=== PATIENT | male | born 1955 | race Caucasian/White ===

== ENCOUNTER 2017-01-28 08:32 | Emergency (ER) | payer OTHER ==
[2017-01-28 08:38] VITALS: BP 150/91; PULSE 83; RESP 16; TEMP 98.8; O2SAT 98
[2017-01-28 08:39] VITALS: BMI 23.8
--- NOTE | 2017-01-28 09:50 | ED PDOC ---
HPI: Headache Time Seen by Provider: 01/28/17 09:07 Chief Complaint (Nursing): Headache Chief Complaint (Provider): Headache History Per: Patient History/Exam Limitations: no limitations Onset/Duration Of Symptoms: Days Current Symptoms Are (Timing): Still Present Quality: "Pain" Preceeding Symptoms: None Associated Symptoms: denies: Photophobia, Blurred Vision, Nausea, Vomiting, Extremity Weakness Additional History Per: Patient Additional Complaint(s): The patient is a 61yo male, with past medical history of high cholesterol, presents to the ED for evaluation of left sided face pain radiating to his ear and down his neck for the past couple days. Patient reports he had associated fever, present intermittently and controlled with use of Tylenol. He also reports taking Motrin for pain with relief. Patient states he visited his PCP and was informed to visit the ED for further evaluation. He denies any vision changes, recent dental work, dental pain and offers no additional medical complaints. Past Medical History Reviewed: Historical Data, Nursing Documentation, Vital Signs Vital Signs: Last Vital Signs Temp 98.8 F 01/28/17 08:37 Pulse 83 01/28/17 08:37 Resp 16 01/28/17 08:37 BP 150/91 H 01/28/17 08:37 Pulse Ox 98 01/28/17 08:37 - Medical History PMH: Hypercholesterolemia, Chronic Kidney Disease - Surgical History Surgical History: No Surg Hx - Family History Family History: States: No Known Family Hx - Living Arrangements Living Arrangements: With Family - Social History Current smoker - smoking cessation education provided: No Alcohol: Occasional Drugs: Denies - Home Medications Home Medications: Ambulatory Orders Medication Instructions Recorded Unobtainable 12/02/16 - Allergies Allergies/Adverse Reactions: Allergies Allergy/AdvReac Type Severity Reaction Status Date / Time No Known Allergies Allergy Verified 12/02/16 08:12 Review of Systems ROS Statement: Except As Marked, All Systems Reviewed And Found Negative Constitutional: Positive for: Fever (intermittent episodes, relief with tylenol) ENT: Positive for: Ear Pain (left), Other (left face swelling). Negative for: Ear Discharge Gastrointestinal: Negative for: Nausea, Vomiting Musculoskeletal: Positive for: Neck Pain (left sided) Physical Exam - Reviewed Nursing Documentation Reviewed: Yes Vital Signs Reviewed: Yes - Physical Exam Appears: Positive for: Non-toxic, No Acute Distress Head Exam: Positive for: ATRAUMATIC, NORMAL INSPECTION, NORMOCEPHALIC Skin: Positive for: Warm, Dry Eye Exam: Positive for: EOMI, PERRL ENT: Positive for: Normal ENT Inspection, TM Is/Are (clear bilateraly), Other ( mild erythema, swelling noted near left TMJ). Negative for: Pharyngeal Erythema Neck: Positive for: Painless ROM, Supple, Trachea Midline Cardiovascular/Chest: Positive for: Regular Rate, Rhythm Respiratory: Positive for: Normal Breath Sounds. Negative for: Respiratory Distress Neurologic/Psych: Positive for: Alert, Oriented - Laboratory Results Result Diagrams: 01/28/17 10:58 01/28/17 10:58 - ECG O2 Sat by Pulse Oximetry: 98 (RA) Pulse Ox Interpretation: Normal Medical Decision Making Medical Decision Making: Time: 939 Impression: Left facial pain, rule out abscess Plan: -- CT Facial bones -- Labs Reassess 1330 CT Head IMPRESSION: Unremarkable contrast enhanced CT of the orbits and face. Labs reviewed and all results are within normal limits. Patient informed of findings and is stable for discharge home. Informed to follow up with ENT specialist and to return to ED if symptoms worsen. Scribe Attestation: Documented by Tamie Chiang acting as a scribe for David Banks MD. Provider Attestation: All medical record entries made by the Scribe were at my direction and personally dictated by me. I have reviewed the chart and agree that the record accurately reflects my personal performance of the history, physical exam, medical decision making, and the department course for this patient. I have also personally directed, reviewed, and agree with the discharge instructions and disposition. Disposition - Clinical Impression Clinical Impression: Jaw pain - Disposition Referrals: [facility] [Outside] [facility] [Outside] Alex Harley MD [Staff Provider] - Disposition: Routine/Home Disposition Time: 13:30 Condition: IMPROVED Additional Instructions: follow up with ENT doctor in 1-2 days take motrin for pain return to the ED with any worsening or concerning symptoms Instructions: Temporomandibular Disorder (ED) Forms: [facility] (Mauritian) Print Language: [id number]
[2017-01-28] MEDS ORDERED: Iohexol 300 100 ML IJ ONE (10:10)
[2017-01-28] MEDS ORDERED: Sodium Chloride 0.9% 50 ML IV ONE (10:10)
[2017-01-28 11:10] LABS: BASO % 0.1 % (0.0-2.0); EOS # 0.2 K/uL (0.0-0.7); EOS % 1.9 % (0.0-4.0); HEMATOCRIT 40.3 % (35.0-51.0); LYMPH # 1.4 K/uL (1.0-4.3); LYMPH % 13.5 % (20.0-40.0); MEAN CELL VOLUME 90.5 fl (80.0-94.0); MEAN CORPUSCULAR HGB CONC 34.3 g/dL (33.0-37.0); MEAN PLATELET VOLUME 8.7 fl (7.2-11.7); MONO # 0.8 K/uL (0.0-0.8); MONO % 7.5 % (0.0-10.0); NEUT # 8.2 K/uL (1.8-7.0); RED CELL DISTRIBUTION WIDTH 12.6 % (11.5-14.5); WHITE BLOOD COUNT 10.7 K/uL (4.8-10.8)
[2017-01-28 11:57] LABS: ALB/GLOB RATIO 1.3 (1.0-2.1); ALKALINE PHOSPHATASE 68 U/L (38-126); ALT/SGPT 25 U/L (21-72); AST/SGOT 26 U/L (17-59); BILIRUBIN,TOTAL 0.6 mg/dl (0.2-1.3); BLOOD UREA NITROGEN 12 mg/dl (9-20); CALCIUM 9.2 mg/dL (8.4-10.2); CARBON DIOXIDE 24 mmol/L (22-30); CHLORIDE 106 mmol/L (98-107); GFR AFRICAN-AMERICAN > 60; GLUCOSE,RANDOM 100 mg/dL (75-110); POTASSIUM 4.6 MMOL/L (3.6-5.0); SODIUM 141 mmol/l (132-148); TOTAL PROTEIN 7.2 G/DL (6.3-8.2)
--- NOTE | 2017-01-28 13:30 | CT ---
PROCEDURE: CT ORBITS WITH CONTRAST. [id number] HISTORY: left facial swelling COMPARISON: None available. TECHNIQUE: Following administration of intravenous iodinated contrast, axial CT images of the orbits and facial region were obtained. Coronal and sagittal reformats were generated. Intravenous contrast dose: 95 cc Omnipaque 300 Radiation dose: Total exam DLP = mGy-cm. This CT exam was performed using one or more of the following dose reduction techniques: Automated exposure control, adjustment of the mA and/or kV according to patient size, and/or use of iterative reconstruction technique. FINDINGS: RIGHT ORBIT: RIGHT BONY ORBIT: Normal. RIGHT INTRAORBITAL STRUCTURES: Globe: Normal. Extraocular muscles: Normal. Post septal space: Normal. Optic Nerve: Normal. Lacrimal Apparatus: Normal. RIGHT PRESEPTAL SOFT TISSUES: Normal. LEFT ORBIT: LEFT BONY ORBIT: Normal. LEFT INTRAORBITAL STRUCTURES: Globe: Normal. Extraocular muscles: Normal. Post septal space: Normal. Optic Nerve: Normal. Lacrimal Apparatus: Normal. LEFT PRESEPTAL SOFT TISSUES: Normal. OTHER: None. IMPRESSION: Unremarkable contrast enhanced CT of the orbits and face. .
== END 2017-01-28 14:08 | disposition home or self-care (01) ==
LOC: SUPCPDRO 08:32 → H.ER 08:32
DX: R68.84 Jaw pain (principal)
CPT/HCPCS: 70481; 80053; 85025; 87040; 99285; Q9967

== ENCOUNTER 2017-02-19 08:14 | Emergency (ER) | payer OTHER ==
[2017-02-19 08:15] VITALS: BMI 23.8
[2017-02-19 08:24] VITALS: BP 139/90; PULSE 98; RESP 19; TEMP 98.3; O2SAT 100
--- NOTE | 2017-02-19 09:01 | ED PDOC ---
HPI: Back Time Seen by Provider: 02/19/17 08:24 Chief Complaint (Nursing): Back Pain Chief Complaint (Provider): Neck Pain History Per: Patient History/Exam Limitations: no limitations Onset/Duration Of Symptoms: Days (x4) Current Symptoms Are (Timing): Still Present Additional Complaint(s): Ralph is a 61 y/o male who presents to the ED complaining of left-sided neck pain for 4 days. Denies any injury or trauma. Seen by PMD on 02/17, who prescribed butalbital with tylenol and caffeine, which patient has taken with minimal relief (last dose yesterday 6PM). Also reports taking a muscle relaxer on Wednesday without relief, and 800mg Ibuprofen yesterday afternoon. Patient also complains of a subjective fever on & off for the past 2-3 days, but no temperature was taken at home. Pain worsens with movement and position of head. Denies chest pain, cough, and shortness of breath. PMD: Jack Coreas Past Medical History Reviewed: Historical Data, Nursing Documentation, Vital Signs Vital Signs: Last Vital Signs Temp 98.3 F 02/19/17 08:22 Pulse 98 H 02/19/17 08:22 Resp 19 02/19/17 08:22 BP 139/90 02/19/17 08:22 Pulse Ox 100 02/19/17 08:22 - Medical History PMH: Hypercholesterolemia, Chronic Kidney Disease - Surgical History Surgical History: No Surg Hx - Family History Family History: States: Unknown Family Hx - Social History Current smoker - smoking cessation education provided: No Alcohol: Social Drugs: Denies - Home Medications Home Medications: Ambulatory Orders Medication Instructions Recorded Acetaminophen/Butalbital/Caf 1 tab PO Q8H 02/19/17 [Fioricet] Cyclobenzaprine [Cyclobenzaprine 10 mg PO TID #30 tab 02/19/17 HCl] Gemfibrozil [Lopid] 600 mg PO DAILY 02/19/17 Naproxen [Naprosyn] 500 mg PO BID PRN #20 tablet 02/19/17 - Allergies Allergies/Adverse Reactions: Allergies Allergy/AdvReac Type Severity Reaction Status Date / Time No Known Allergies Allergy Verified 12/02/16 08:12 Review of Systems ROS Statement: Except As Marked, All Systems Reviewed And Found Negative Constitutional: Positive for: Fever Cardiovascular: Negative for: Chest Pain Respiratory: Negative for: Cough, Shortness of Breath Musculoskeletal: Positive for: Neck Pain Physical Exam - Reviewed Nursing Documentation Reviewed: Yes Vital Signs Reviewed: Yes - Physical Exam Appears: Positive for: Non-toxic, No Acute Distress Head Exam: Positive for: ATRAUMATIC, NORMAL INSPECTION, NORMOCEPHALIC Skin: Positive for: Normal Color, Warm, Dry Eye Exam: Positive for: EOMI, Normal appearance, PERRL Neck: Positive for: Normal, Supple, Pain On Movement Of Neck (with tenderness to the left cervical paraspinal muscles) Cardiovascular/Chest: Positive for: Regular Rate, Rhythm. Negative for: Edema, Murmur Respiratory: Positive for: Normal Breath Sounds. Negative for: Accessory Muscle Use, Respiratory Distress Pulses-Radial (L): 2+ Pulses-Radial (R): 2+ Back: Positive for: Normal Inspection. Negative for: L CVA Tenderness, R CVA Tenderness, Vertebral Tenderness Extremity: Positive for: Normal ROM. Negative for: Pedal Edema, Deformity Neurologic/Psych: Positive for: Alert, Oriented - ECG O2 Sat by Pulse Oximetry: 100 (RA) Pulse Ox Interpretation: Normal - Radiology X-Ray: Interpreted by Me, Viewed By Me X-Ray Interpretation: No Acute Disease Medical Decision Making Medical Decision Making: Time: 8:52 Initial Plan: --Toradol 30 mg IV --Valium 5 mg PO --X-Ray Cervical Spine Scribe Attestation: Documented by Ava Sexton, acting as a scribe for Andreea Villatoro MD Provider Scribe Attestation: All medical record entries made by the Scribe were at my direction and personally dictated by me. I have reviewed the chart and agree that the record accurately reflects my personal performance of the history, physical exam, medical decision making, and the department course for this patient. I have also personally directed, reviewed, and agree with the discharge instructions and disposition. 10.40 - x-rays shows no acute pathology. patient is feeling better. Will d/c home with meds. Disposition - Clinical Impression Clinical Impression: Muscle strain - Patient ED Disposition Is Patient to be Admitted: No Doctor Will See Patient In The: Office Counseled Patient/Family Regarding: Diagnosis, Need For Followup, Rx Given - Disposition Disposition: Routine/Home Disposition Time: 10:51 Condition: IMPROVED Prescriptions: Cyclobenzaprine [Cyclobenzaprine HCl] 10 mg PO TID #30 tab Naproxen [Naprosyn] 500 mg PO BID PRN #20 tablet PRN Reason: Pain, Moderate (4-7) Instructions: Muscle Strain (ED) Forms: [facility] (Belgian), [facility] ED School/Work Excuse - POA Present On Arrival: None
--- NOTE | 2017-02-19 11:28 | RAD ---
PROCEDURE: Cervical Spine Radiographs. HISTORY: Pain. COMPARISON: None. FINDINGS: BONES: There is straightening of the cervical spine with loss of normal cervical lordosis. Vertebral alignment is normal. vertebral height is maintained. There is no acute fracture or spondylolisthesis. The craniocervical junction is normal. The atlantoaxial joint is normal. DISC SPACES: There is mild degenerative disc disease at C5-6 with anterior osteophytes and reduced disc height. There is mild right neural foraminal narrowing at C3-4 and mild left neural foraminal narrowing at C3-4 and C5-6. SOFT TISSUES: Normal. No prevertebral soft tissue swelling. OTHER FINDINGS: None. IMPRESSION: Mild degenerative disc disease at C5-6 with mild left neural foraminal narrowing. Additional comments as described above. Straightening of the cervical spine may be positional or related to muscle spasm.
== END 2017-02-19 11:01 | disposition home or self-care (01) ==
LOC: H.ER 08:14
DX: M54.2 Cervicalgia (principal); E78.00 Pure hypercholesterolemia, unspecified; N18.9 Chronic kidney disease, unspecified
CPT/HCPCS: 72050; 96374; 99281; J1885

== ENCOUNTER 2017-09-22 11:43 | Observation (INO) | payer OTHER ==
[2017-09-22 11:44] VITALS: BMI 23.8
[2017-09-22] MEDS ORDERED: Sodium Chloride 0.9% 1,000 ML IV STA (12:26)
[2017-09-22] MEDS ORDERED: Iohexol 240 (50 ml) PO ONE (12:26)
[2017-09-22] MEDS ORDERED: Famotidine 20mg/50ml 20 MG/50 ML BAG IVPB ONE ×2 (12:30→12:42)
[2017-09-22] MEDS ORDERED: Iohexol 240 (50 ml) ONE (12:42)
--- NOTE | 2017-09-22 12:47 | ED PDOC ---
HPI: Chest Pain Time Seen by Provider: 09/22/17 12:07 Chief Complaint (Nursing): Chest Pain Chief Complaint (Provider): Chest pain History Per: Patient History/Exam Limitations: no limitations Onset/Duration Of Symptoms: Days (3) Additional Complaint(s): Pt. with chest pain for 3 days. Getting better. Also with left lower abdominal pain for 4 days. Had dark stool today. No back pain, dyspnea, weakness, headaches, dizziness. No dysuria. No leg pain. Had a test for his heart in the past and had some closing of one of the arteries. Past Medical History Reviewed: Nursing Documentation, Vital Signs Vital Signs: Last Vital Signs Temp 98.1 F 09/22/17 11:54 Pulse 81 09/22/17 11:54 Resp 16 09/22/17 11:54 BP 142/89 09/22/17 11:54 Pulse Ox 98 09/22/17 13:16 - Medical History PMH: CAD, HTN, Hypercholesterolemia - Family History Family History: States: Unknown Family Hx - Social History Alcohol: None Drugs: Denies - Home Medications Home Medications: Ambulatory Orders Medication Instructions Recorded Acetaminophen/Butalbital/Caf 1 tab PO Q8H 02/19/17 [Fioricet] Cyclobenzaprine [Cyclobenzaprine 10 mg PO TID #30 tab 02/19/17 HCl] Gemfibrozil [Lopid] 600 mg PO DAILY 02/19/17 Naproxen [Naprosyn] 500 mg PO BID PRN #20 tablet 02/19/17 - Allergies Allergies/Adverse Reactions: Allergies Allergy/AdvReac Type Severity Reaction Status Date / Time No Known Allergies Allergy Verified 12/02/16 08:12 Review of Systems ROS Statement: Except As Marked, All Systems Reviewed And Found Negative Cardiovascular: Positive for: Chest Pain Gastrointestinal: Positive for: Abdominal Pain, Other (dark stool) Physical Exam - Reviewed Nursing Documentation Reviewed: Yes Vital Signs Reviewed: Yes - Physical Exam Appears: Positive for: Non-toxic, No Acute Distress Head Exam: Positive for: ATRAUMATIC, NORMAL INSPECTION, NORMOCEPHALIC Skin: Positive for: Normal Color, Warm, DRY Eye Exam: Positive for: EOMI, Normal appearance, PERRL ENT: Positive for: Normal ENT Inspection Neck: Positive for: Normal, Painless ROM Cardiovascular/Chest: Positive for: Regular Rate, Rhythm Respiratory: Positive for: CNT, Normal Breath Sounds Gastrointestinal/Abdominal: Positive for: Soft, Tenderness (LLQ). Negative for : Distended, Guarding Back: Positive for: Normal Inspection. Negative for: L CVA Tenderness, R CVA Tenderness Rectal: Positive for: Rectal Tone Is: (intact), Other (brown stool). Negative for: Black Stool, Blood Streaked Stool Extremity: Positive for: Normal ROM. Negative for: Tenderness, Pedal Edema Neurologic/Psych: Positive for: Alert, Oriented - Laboratory Results Result Diagrams: 09/22/17 12:16 09/22/17 12:16 Interpretation Of Abn Labs: no acute - ECG ECG: Positive for: Interpreted By Me, Viewed By Me ECG Rhythm: Positive for: Normal QRS, Normal ST Segment, Sinus Rhythm O2 Sat by Pulse Oximetry: 98 Pulse Ox Interpretation: Normal - CT Scan/US ct Other Rad Studies (CT/US): Read By Radiologist Other Rad Interpretation: no acute - Progress ED Course And Treament: 1555: Stable. AAOx3. Has risk factors for ACS with CAD hx. Will need admit. Spoke with Dr. Dwyer. Will admit tele obs and give further orders when pt. reaches floor. No chest pain currently. Disposition - Clinical Impression Clinical Impression: Chest pain, Abdominal pain - Patient ED Disposition Is Patient to be Admitted: Yes Counseled Patient/Family Regarding: Studies Performed, Diagnosis, Need For Followup - Disposition Disposition Time: 15:56 Condition: FAIR - Pt Status Changed To: Hospital Disposition Of: Observation - POA Present On Arrival: None
[2017-09-22 12:48] LABS: LYMPH % 9.5 % (20.0-40.0); MEAN CELL VOLUME 90.5 fl (80.0-94.0); MEAN CORPUSCULAR HEMOGLOBIN 31.4 pg (27.0-31.0); MEAN CORPUSCULAR HGB CONC 34.7 g/dL (33.0-37.0); MEAN PLATELET VOLUME 8.8 fl (7.2-11.7); MONO # 0.3 K/uL (0.0-0.8); NEUT % 87.5 % (50.0-75.0); PLATELET COUNT 178 K/uL (130-400); RBC 4.79 Mil/uL (4.40-5.90); RED CELL DISTRIBUTION WIDTH 13.4 % (11.5-14.5); WHITE BLOOD COUNT 10.3 K/uL (4.8-10.8)
[2017-09-22 13:00] LABS: PROTHROMBIN TIME 11.7 Seconds (9.8-13.1)
[2017-09-22 13:01] LABS: INR 1.1 (0.9-1.2); PARTIAL THROMBOPLASTIN TIME 28.7 Seconds (25.6-37.1)
[2017-09-22 13:02] LABS: ALB/GLOB RATIO 1.2 (1.0-2.1); ALBUMIN 4.3 g/dL (3.5-5.0); ALT/SGPT 31 U/L (21-72); AST/SGOT 22 U/L (17-59); BLOOD UREA NITROGEN 21 mg/dl (9-20); CALCIUM 9.5 mg/dL (8.4-10.2); GFR AFRICAN-AMERICAN > 60; GFR NON-AFRICAN AMERICAN > 60
[2017-09-22 13:26] LABS: ANISOCYTOSIS SLIGHT; LARGE PLATELETS PRESENT; LYMPHOCYTE 15 % (20-50); MONOCYTE 4 % (0-10); NEUTROPHIL 81 % (42-75); PLATELET ESTIMATE NORMAL (NORMAL); TOTAL CELLS COUNTED 100
[2017-09-22] MEDS ORDERED: Sodium Chloride 0.9% 50 ML IV ONE (14:53)
[2017-09-22] MEDS ORDERED: Iohexol 300 100 ML IJ ONE (14:53)
--- NOTE | 2017-09-22 15:26 | CT ---
PROCEDURE: CT Abdomen and Pelvis with contrast HISTORY: abd pain COMPARISON: None. TECHNIQUE: Following oral and intravenous contrast administration, a CT examination of the abdomen and pelvis performed from the domes of the diaphragms to the symphysis pubis with reformatted datasets provided not only axial but also sagittal and coronal series. Contrast dose: Omnipaque 300, 95 cc Radiation dose: Total exam DLP = 346.49 mGy-cm. This CT exam was performed using one or more of the following dose reduction techniques: Automated exposure control, adjustment of the mA and/or kV according to patient size, and/or use of iterative reconstruction technique. FINDINGS: LOWER THORAX: Trace bibasilar dependent atelectasis is noted. No pleural pericardial effusion. Trace fluid or mucoid material is seen minimally distending the esophagogastric junction. LIVER: Diminished hepatic attenuation is appreciate compatible with hepatic steatosis. No focal mass or biliary tree dilatation is identified throughout the liver. GALLBLADDER AND BILE DUCTS: Unremarkable. PANCREAS: Unremarkable. No gross lesion or ductal dilatation. SPLEEN: Unremarkable. ADRENALS: Unremarkable. No mass. KIDNEYS AND URETERS: There multiple but infrequent tiny lucencies which are poorly characterized at the bilateral renal cortex. A moderately large simple cyst is exophytic off the upper pole medially, measuring 6.4 x 6.7 cm. No obstructive uropathy bilaterally. VASCULATURE: Unremarkable. No aortic aneurysm. BOWEL: Stomach is partially collapsed and not well evaluated. No bowel obstruction is identified. [id number] scattered left colonic diverticular changes are appreciated concentrated at the sigmoid segment without diverticulitis. No prominent mural thickening seen throughout the bowel grossly. APPENDIX: Normal appendix. PERITONEUM: Minimal umbilical hernia containing only fat. Developing left inguinal hernia containing only fat. No free fluid. No free air. LYMPH NODES: Unremarkable. No enlarged lymph nodes. BLADDER: Urinary bladder is distended but thin and smooth walled. REPRODUCTIVE: Borderline prostate gland enlargement. BONES: No acute fracture. OTHER FINDINGS: None. IMPRESSION: 1. No bowel or urinary tract obstruction, ascites, measure edema or free intraperitoneal gas identified. 2. Hepatic steatosis. 3. Left colonic diverticulosis without diverticulitis. 4. Borderline prostate gland enlargement. 5. Moderately large simple cyst left kidney.
--- NOTE | 2017-09-22 16:25 | RAD ---
HISTORY: pain COMPARISON: No prior. FINDINGS: LUNGS: No active pulmonary disease. PLEURA: No significant pleural effusion identified, no pneumothorax apparent. CARDIOVASCULAR: Normal. OSSEOUS STRUCTURES: Bilateral shoulder arthrosis VISUALIZED UPPER ABDOMEN: Normal. OTHER FINDINGS: None. IMPRESSION: No active disease.
[2017-09-22] MEDS ORDERED: Pneumococcal 23-Valent Vaccine IM ONE (21:00)
--- NOTE | 2017-09-23 01:33 | HP ---
HISTORY OF PRESENT ILLNESS: The patient is a 62-year-old male with history of multiple medical problems presented with epigastric burning like chest pain. The patient stated that he had the pain during rest and was not relieved by taking antiacids. The patient also admits that he has some shortness of breath, but no palpitation. REVIEW OF SYSTEMS: Other review of systems positive black stool that noticed by the patient on the day of admission. Other review of systems is negative. ALLERGIES: NO KNOWN ALLERGY. MEDICATIONS: As per MAR. SOCIAL HISTORY: No history of smoking, EtOH, or substance abuse. FAMILY HISTORY: Noncontributory. PAST MEDICAL HISTORY: Type 2 diabetes mellitus, back pain, and hypercholesterolemia. PHYSICAL EXAMINATION: GENERAL: The patient is in bed, not in any cardiopulmonary distress. VITAL SIGNS: Blood pressure 135/83, temperature 98.5, respiratory rate 20, and pulse 73. HEENT: Pupils equal and reactive to light. Normal-appearing mucosa of the conjunctivae, oropharynx, and nasal membrane mucosa. NECK: Supple. No JVD. No carotid bruit. No lymph node. No thyromegaly. CHEST AND LUNGS: Bilateral symmetrical expansion. Good air exchange. No rales. No rhonchi. CARDIOVASCULAR: PMI not localized. S1 and S2. No additional sounds. ABDOMEN: Normoactive bowel sounds. No tenderness. No organomegaly. No masses. EXTREMITIES: No cyanosis. No clubbing. No edema. CENTRAL NERVOUS SYSTEM: Alert, awake, and oriented x3. No neurological deficit could be appreciated. ASSESSMENT: 1. Chest pain, rule out myocardial infarction, symptoms of melena and the patient was on naproxen at home for back pain, rule out upper gastrointestinal bleeding. 2. Type 2 diabetes mellitus. 3. Hypercholesterolemia. PLAN: We will do cardiac enzymes every 8 hours x3. GI consult, Protonix, and hold the current medications. Lo Dwyer MD
--- NOTE | 2017-09-23 09:18 | CARD ---
APPROVED REPORT EKG Measurement Heart [id number] ID [id number] <Conclusion> Normal sinus rhythm Normal ECG
[2017-09-23] MEDS ORDERED: Chlorhexidine Gluconate 1 APPL/PKT TP ONE (09:27)
--- NOTE | 2017-09-23 09:35 | CP.PCM.CON ---
<Charlie Victoria - Last Filed: 09/23/17 11:30> History of Present Illness - History of Present Illness History of Present Illness: PGY5 GI Fellow Consult Note Patient is a 62yo male with PMHx significant for diabetes, dyslipidemia who presented to the ED with chest/abdominal pain. The patient has been suffering with severe low back pain and has been using Naproxen and Baclofen for several days prior to arrival. Prior to that, he admits to Mortrin use at home. He developed intermittent, substernal and epigastric burning pain over the last week. Symptoms improved with Tums and he denies any other medications/remedies used to treat symptoms. Yesterday, he had a formed, dark black stool and given persistence of symptoms, came to the ED for further evaluation. Thusfar, cardiac workup is ongoing and troponin is negative x3. Denies any dizziness, lightheadedness, palpitations, nausea, vomiting, weight loss, hematochezia. 12 system ROS performed and negative except where stated PMHx: See HPI PSHx: Reveiwed, patient denies significant surgical history FHx: Reviewed, patient denies significant family history Social: Denies tobacco, illicit drug use; rare EtOh use Endo: Colonoscopy - December 2016 - sigmoid diverticulosis Past Patient History - Infectious Disease Hx of Infectious Diseases: None - Past Medical History & Family History Past Medical History?: Yes - Past Social History Smoking Status: Never Smoked - CARDIAC Hx Cardiac Disorders: Yes (CAD,HTN, HLD) - PULMONARY Hx Respiratory Disorders: No - NEUROLOGICAL Hx Neurological Disorder: No - HEENT Hx HEENT Problems: No - RENAL Hx Chronic Kidney Disease: Yes (KIDNEY CYSTS) - ENDOCRINE/METABOLIC Hx Endocrine Disorders: No - HEMATOLOGICAL/ONCOLOGICAL Hx Blood Disorders: No Hx AIDS: No Hx Human Immunodeficiency Virus (HIV): No - INTEGUMENTARY Hx Dermatological Problems: No - MUSCULOSKELETAL/RHEUMATOLOGICAL Hx Musculoskeletal Disorders: No Hx Falls: No - GASTROINTESTINAL Hx Gastrointestinal Disorders: No - GENITOURINARY/GYNECOLOGICAL Hx Genitourinary Disorders: No - PSYCHIATRIC Hx Psychophysiologic Disorder: No Hx Substance Use: No - SURGICAL HISTORY Hx Surgeries: No - ANESTHESIA Hx Anesthesia: No Hx Anesthesia Reactions: No Hx Malignant Hyperthermia: No Has any member of the family had a problem w/ anesthesia?: No Meds Allergies/Adverse Reactions: Allergies Allergy/AdvReac Type Severity Reaction Status Date / Time No Known Allergies Allergy Verified 12/02/16 08:12 - Medications Medications: Current Medications Aspirin (Aspirin Chewable) 81 mg PO DAILY ON LICENSE OF [facility] Last Admin: 09/23/17 08:38 Dose: 81 mg Atorvastatin Calcium (Lipitor) 20 mg PO DAILY ON LICENSE OF [facility] Last Admin: 09/23/17 08:38 Dose: 20 mg Metoprolol Tartrate (Lopressor) 12.5 mg PO Q12 ON LICENSE OF [facility] Last Admin: 09/23/17 08:39 Dose: 12.5 mg Pantoprazole Sodium (Protonix Inj) 40 mg IVP DAILY ON LICENSE OF [facility] Last Admin: 09/23/17 08:38 Dose: 40 mg Physical Exam - Constitutional Appears: Non-toxic, No Acute Distress - Eye Exam Eye Exam: EOMI, PERRL - ENT Exam ENT Exam: Mucous Membranes Moist - Respiratory Exam Respiratory Exam: Clear to Auscultation Bilateral. absent: Rales, Rhonchi, Wheezes - Cardiovascular Exam Cardiovascular Exam: RRR, +S1, +S2 - GI/Abdominal Exam GI & Abdominal Exam: Normal Bowel Sounds, Organomegaly, Soft. absent: Distended , Firm, Guarding, Rigid, Tenderness - Rectal Exam Rectal Exam: absent: Black Stool, Bloody Stool, Hemorrhoids Additional comments: brown stool; patch of hypopigmented skin in the posterior/superior aspect of gluteal fold - Extremities Exam Extremities exam: Positive for: normal inspection. Negative for: pedal edema - Neurological Exam Neurological exam: Alert, Oriented x3 - Psychiatric Exam Psychiatric exam: Normal Affect, Normal Mood - Skin Skin Exam: Dry, Warm Results - Vital Signs Recent Vital Signs: Last Vital Signs Temp 97.9 F 09/23/17 08:01 Pulse 66 09/23/17 08:01 Resp 18 09/23/17 08:01 BP 129/85 09/23/17 08:39 Pulse Ox 97 09/23/17 08:01 - Labs Result Diagrams: 09/22/17 12:16 09/22/17 12:16 Labs: Laboratory Results - last 24 hr 09/22/17 09/22/17 09/22/17 12:16 12:16 12:16 WBC 10.3 RBC 4.79 Hgb 15.0 Hct 43.4 MCV 90.5 MCH 31.4 H MCHC 34.7 RDW 13.4 Plt Count 178 MPV 8.8 Neut % (Auto) 87.5 H Lymph % (Auto) 9.5 L [place] % (Auto) 3.0 Eos % (Auto) 0.0 Baso % (Auto) 0.0 Neut # (Auto) 9.0 H Lymph # (Auto) 1.0 [place] # (Auto) 0.3 Eos # (Auto) 0.0 Baso # (Auto) 0.0 Neutrophils % (Manual) 81 H Lymphocytes % (Manual) 15 L Monocytes % (Manual) 4 Platelet Estimate Normal Large Platelets Present Anisocytosis (manual) Slight PT INR APTT Sodium 138 Potassium 4.2 Chloride 100 Carbon Dioxide 24 Anion Gap 18 BUN 21 H Creatinine 0.9 Est GFR ( Amer) > 60 Est GFR (Non-Af Amer) > 60 Random Glucose 164 H Calcium 9.5 Total Bilirubin 0.8 AST 22 ALT 31 Alkaline Phosphatase 62 Troponin I < 0.0120 Total Protein 7.9 Albumin 4.3 Globulin 3.7 Albumin/Globulin Ratio 1.2 Stool Occult Blood Negative 09/22/17 09/22/17 09/23/17 12:16 21:00 05:00 WBC RBC Hgb Hct MCV MCH MCHC RDW Plt Count MPV Neut % (Auto) Lymph % (Auto) [place] % (Auto) Eos % (Auto) Baso % (Auto) Neut # (Auto) Lymph # (Auto) [place] # (Auto) Eos # (Auto) Baso # (Auto) Neutrophils % (Manual) Lymphocytes % (Manual) Monocytes % (Manual) Platelet Estimate Large Platelets Anisocytosis (manual) PT 11.7 INR 1.1 APTT 28.7 Sodium Potassium Chloride Carbon Dioxide Anion Gap BUN Creatinine Est GFR ( Amer) Est GFR (Non-Af Amer) Random Glucose Calcium Total Bilirubin AST ALT Alkaline Phosphatase Troponin I < 0.0120 < 0.0120 Total Protein Albumin Globulin Albumin/Globulin Ratio Stool Occult Blood Assessment & Plan - Assessment and Plan (Free Text) Assessment: Patient is a 62yo male with PMHx significant for diabetes, dyslipidemia who presented to the ED with chest/abdominal pain -Dyspepsia - recent heavy NSAID use -Chest pain R/O ACS Plan: -No overt GI bleeding noted and brown stool on rectal examination -HGB WNL -Given heavy NSAID use recently, recommend prophylaxis with PPI as long as using NSAID for back pain -Continue PPI for at least 5-6 weeks with 40mg PO QAMAC -Outpatient follow up requested for EGD if symptoms persist -Diet as tolerated - Date & Time Date: 09/23/17 Time: 08:30 <Yessica Bar - Last Filed: 09/23/17 13:17> Meds - Medications Medications: Current Medications Acetaminophen (Tylenol 325mg Tab) 650 mg PO Q6 PRN PRN Reason: Pain, severe (8-10) Last Admin: 09/23/17 12:02 Dose: 650 mg Aspirin (Aspirin Chewable) 81 mg PO DAILY ON LICENSE OF [facility] Last Admin: 09/23/17 08:38 Dose: 81 mg Atorvastatin Calcium (Lipitor) 20 mg PO DAILY ON LICENSE OF [facility] Last Admin: 09/23/17 08:38 Dose: 20 mg Enalapril Maleate (Vasotec) 2.5 mg PO DAILY ON LICENSE OF [facility] Last Admin: 09/23/17 12:52 Dose: 2.5 mg Gabapentin (Neurontin) 100 mg PO DAILY ON LICENSE OF [facility] Last Admin: 09/23/17 12:52 Dose: 100 mg Metoprolol Tartrate (Lopressor) 12.5 mg PO Q12 ON LICENSE OF [facility] Last Admin: 09/23/17 08:39 Dose: 12.5 mg Pantoprazole Sodium (Protonix Ec Tab) 40 mg PO ACB ON LICENSE OF [facility] Results - Vital Signs Recent Vital Signs: Last Vital Signs Temp 98.3 F 09/23/17 12:17 Pulse 68 09/23/17 12:17 Resp 18 09/23/17 12:17 BP 137/87 09/23/17 12:17 Pulse Ox 97 09/23/17 12:17 - Labs Result Diagrams: 09/22/17 12:16 09/22/17 12:16 Labs: Laboratory Results - last 24 hr 09/22/17 09/22/17 09/22/17 12:16 12:16 21:00 Neutrophils % (Manual) 81 H Lymphocytes % (Manual) 15 L Monocytes % (Manual) 4 Platelet Estimate Normal Large Platelets Present Anisocytosis (manual) Slight Troponin I < 0.0120 Stool Occult Blood Negative 09/23/17 05:00 Neutrophils % (Manual) Lymphocytes % (Manual) Monocytes % (Manual) Platelet Estimate Large Platelets Anisocytosis (manual) Troponin I < 0.0120 Stool Occult Blood Attending/Attestation - Attestation I have personally seen and examined this patient.: Yes I have fully participated in the care of the patient.: Yes I have reviewed all pertinent clinical information: Yes Notes (Text): 09/23/17 13:15 This is a 62 year old male with PMHx significant for diabetes, dyslipidemia who presented to the ED with chest/abdominal pain undergoing cardiac evaluation. Today he complains of back pain. has renal cyst. GI consulted for dyspepsia symptoms for which will start PPi in am daily and then outpatient EGD/ colonoscopy. No change in bowel habits or concerning symptoms for urgent procedure. Diet as tolerated
--- NOTE | 2017-09-23 11:49 | CARD ---
APPROVED REPORT EXAM: Two-dimensional and M-mode echocardiogram with Doppler and color Doppler. Other Information Quality : GoodRhythm : NSR INDICATION Chest Pain 2D DIMENSIONS IVSd0.89 (0.7-1.1cm)LVDd4.47 (3.9-5.9cm) LVOT Diameter2.59 (1.8-2.4cm)PWd1.01 (0.7-1.1cm) IVSs1.18 (0.8-1.2cm)LVDs3.66 (2.5-4.0cm) FS (%) 18.0 %PWs1.22 (0.8-1.2cm) M-Mode DIMENSIONS Left Atrium (MM)3.06 (2.5-4.0cm)IVSd0.77 (0.7-1.1cm) Aortic Root3.53 (2.2-3.7cm)LVDd5.79 (4.0-5.6cm) Aortic Cusp Exc.2.18 (1.5-2.0cm)PWd0.88 (0.7-1.1cm) IVSs1.49 cmFS (%) 31 % LVDs4.00 (2.0-3.8cm)PWs1.02 cm Mitral Valve MV E Pnkisqio69.8cm/sMV DECEL [id number] A Xlskxqsy52.4cm/s MV ALG900syS/A ratio0.9MVA (PHT)2.00cm2 TDI Lateral E' Peak V8.80cm/sMedial E' Peak V7.50cm/sE/Lateral E'4.4 E/Medial E'5.2 Tricuspid Valve TR Peak [id number]/sRAP [id number] Peak Gr.17mmHg [id number] LEFT VENTRICLE The left ventricle is normal size. There is normal left ventricular wall thickness. Left ventricle systolic function is moderately impaired. The Ejection Fraction is 30-35%. Moderate generalised hypokinesia Transmitral Doppler flow pattern is Grade I-abnormal relaxation pattern. RIGHT VENTRICLE The right ventricle is normal size. There is normal right ventricular wall thickness. The right ventricular systolic function is normal. ATRIA The left atrium size is normal. The right atrium size is normal. AORTIC VALVE The aortic valve is normal in structure. No aortic regurgitation is present. There is no aortic valvular stenosis. MITRAL VALVE The mitral valve is normal in structure. There is no evidence of mitral valve prolapse. There is no mitral valve stenosis. There is no mitral valve regurgitation noted. TRICUSPID VALVE The tricuspid valve is normal in structure. There is mild tricuspid regurgitation. Right ventricular systolic pressure is estimated at 28 mmHg. There is no pulmonary hypertension. PULMONIC VALVE The pulmonary valve is normal in structure. There is no pulmonic valvular regurgitation. GREAT VESSELS The aortic root is normal in size. The IVC is normal in size and collapses >50% with inspiration. PERICARDIAL EFFUSION The pericardium appears normal. <Conclusion> The left ventricle is normal size. There is normal left ventricular wall thickness. Moderate generalised hypokinesia Left ventricle systolic function is moderately impaired. The Ejection Fraction is 30-35%. Transmitral Doppler flow pattern is Grade I-abnormal relaxation pattern.
--- NOTE | 2017-09-23 21:19 | CON ---
CARDIOLOGY CONSULTATION DATE: REASON FOR CONSULTATION: Chest pain. HISTORY OF PRESENT ILLNESS: The patient is a 62-year-old male who is an employee in the [employer], which belongs to [employer] (formerly [employer]] presents because of chest pain for the past 3 days that is heaviness in nature. The patient stated that he underwent cardiac catheterization about [address] [facility] and was told he had . The patient at this time chest pain free. The patient also experience abdominal as well as low back discomfort. SOCIAL HISTORY: The patient is a nonsmoker. He is an employee of the [employer]. MEDICATIONS: Aspirin 81 mg once a day, Lipitor 20 mg once a day, Lopressor 12.5 mg twice a day, and Protonix 40 mg twice a day. REVIEW OF SYSTEMS: No fever or chills. No vomiting or diarrhea. PHYSICAL EXAMINATION: GENERAL: The patient is a middle-aged male who does not appear to be in any distress. VITAL SIGNS: Blood pressure 129/85, heart rate 66, temperature 97.9, and respirations 18. HEENT: Normocephalic. CHEST: Clear. HEART: S1 and S2 regular. ABDOMEN: Soft. EXTREMITIES: No edema. LABORATORY DATA: Hemoglobin and hematocrit are 15 and 43.4, white count and platelet count are within normal limits. PT, PTT, and INR are within normal limits. SMA-7 is within normal limit except for BUN of 21 and glucose of 164. Three sets of troponins are negative. EKG revealed normal sinus rhythm. Echocardiographic study revealed ejection fraction in the range of 30% to 35% with generalized hypokinesis. Abdomen and pelvic scan revealed no bowel or urinary tract obstruction, ascites, intraperitoneal gas, hepatic steatosis, and left colonic diverticulosis without diverticulitis. Chest x-ray was unremarkable except for prominent bronchovascular markings. ASSESSMENT: 1. Chest pain, myocardial infarction ruled out. 2. Gzoiabqj-kf-jfydqz depressed ejection fraction. 3. Diabetes mellitus. RECOMMENDATIONS: Continue current aspirin 81 mg once a day, Lipitor 20 mg once a day, Lopressor 12.5 mg twice a day, and start enalapril 2.5 mg once a day. Cardiac catheterization is recommended and will be discussed with the patient. See Verdugo MD
--- NOTE | 2017-09-23 23:36 | PN ---
DAILY PROGRESS NOTE DATE: 09/23/2017 SUBJECTIVE: The patient is seen today 09/23/2017. He is not in any cardiopulmonary distress. The patient had an echocardiogram that showed ejection fraction of 30%. OBJECTIVE: VITAL SIGNS: Blood pressure 137/89, temperature 98.3, respiratory rate 20, and pulse 77. HEENT: Pupils equal and reactive to light. Normal-appearing mucosa of the conjunctivae, oropharynx, and nasal membrane mucosa. NECK: Supple. No JVD. No carotid bruit. No lymph node. No thyromegaly. CHEST AND LUNGS: Bilateral symmetrical expansion. Good air exchange. No rales. No rhonchi. CARDIOVASCULAR: PMI not localized, S1 and S2. No additional sounds. ABDOMEN: Normoactive bowel sounds. No tenderness. No organomegaly. No masses. EXTREMITIES: No cyanosis. No clubbing. No edema. CENTRAL NERVOUS SYSTEM: Alert, awake, and oriented x3. No neurological deficit could be appreciated. ASSESSMENT: 1. Chest pain, myocardial infarction ruled out. 2. Chronic systolic and diastolic heart failure, rule out coronary artery disease. 3. Type 2 diabetes mellitus. 4. Hypertension. 5. Gastroesophageal reflux disease. PLAN: Continue current medications and the patient is for cardiac catheterization by Dr. Verdugo tomorrow morning. Lo Dwyer MD
[2017-09-24] MEDS: Pantoprazole 40 mg EC Tab PO SCH (08:03)
[2017-09-24] MEDS: Sodium Chloride 0.9% 1,000 ML IV SCH ×2 (12:32)
--- NOTE | 2017-09-24 21:58 | PN ---
DAILY PROGRESS NOTE DATE: 09/24/2017 SUBJECTIVE: The patient is seen today 09/24/2017. He was scheduled for cardiac catheterization. OBJECTIVE: VITAL SIGNS: Blood pressure 111/77, temperature 98.1, respiratory rate 18, and pulse 90. HEENT: Pupils equal and reactive to light. Normal-appearing mucosa of the conjunctivae, oropharynx, and nasal membrane mucosa. NECK: Supple. No JVD. No carotid bruit. No lymph node. No thyromegaly. CHEST AND LUNGS: Bilateral symmetrical expansion. Good air exchange. No rales. No rhonchi. CARDIOVASCULAR: PMI not localized. S1 and S2. No additional sounds. ABDOMEN: Normoactive bowel sounds. No tenderness. No organomegaly. No masses. EXTREMITIES: No cyanosis. No clubbing. No edema. CENTRAL NERVOUS SYSTEM: Alert, awake, and oriented x2. No neurological deficit could be appreciated. ASSESSMENT: 1. Chronic congestive heart failure both systolic and diastolic with ejection fraction of 30%, rule out coronary artery disease. 2. Degenerative spine disease. 3. Type 2 diabetes mellitus. 4. Hypercholesterolemia. PLAN: Follow up with Cardiology and continue current medications. Lo Dwyer MD
[2017-09-25] MEDS: Pantoprazole 40 mg EC Tab PO SCH (07:53)
[2017-09-25 13:41] LABS: ALB/GLOB RATIO 1.2 (1.0-2.1); ALBUMIN 4.4 g/dL (3.5-5.0); ALT/SGPT 34 U/L (21-72); AST/SGOT 30 U/L (17-59); BLOOD UREA NITROGEN 16 mg/dl (9-20); CALCIUM 9.6 mg/dL (8.4-10.2); GFR AFRICAN-AMERICAN > 60; GFR NON-AFRICAN AMERICAN > 60
--- NOTE | 2017-09-25 15:04 | PN ---
DATE: 09/25/2017 SUBJECTIVE: The patient denies chest pain or groin bleeding. PHYSICAL EXAMINATION: VITAL SIGNS: Blood pressure 107/67, heart rate 73, temperature 98.1, and respirations 18. HEENT: Normocephalic. CARDIOPULMONARY: Heart S1 and S2, regular. LUNGS: Clear. EXTREMITIES: No hematoma, no edema. Good distal pulses. LABORATORY DATA: SMA-7 is within normal limits except for glucose of 114. ASSESSMENT: 1. Nonischemic cardiomyopathy, the patient's ejection fraction under cardiac catheterization was estimated at 45%. 2. Alcohol abuse. RECOMMENDATIONS: Continue aspirin 81 mg once a day, Lipitor 20 mg once a day, Lopressor 12.5 mg once a day, and enalapril 2.5 mg once a day. Start thiamine mg orally daily. The patient was strongly advised to abstain from EtOH abuse. See Verdugo MD
[2017-09-25 16:14] VITALS: BP 100/66; PULSE 78; RESP 17; TEMP 98.2; O2SAT 96
--- NOTE | 2017-09-25 22:58 | DS ---
REASON FOR ADMISSION: This is a 62-year-old male with history of multiple medical problems who was admitted to the hospital for chest pain. COURSE OF HOSPITALIZATION: The patient was admitted to telemetry floor and myocardial infarction was ruled out by negative cardiac enzymes. The patient had an echocardiogram that showed ejection fraction of 30% to 35%. The patient had a Cardiology consult done by Dr. Verdugo and he underwent cardiac catheterization that showed normal coronary arteries and ejection fraction is range of about 40% to 45%. The patient was started on beta-tamara, KIERA inhibitor, and he was advised to have a blood work within a week by his primary care physician. The patient also had a GI consult during this admission because of epigastric pain and hyperacidity. The patient was advised to have an EGD as an outpatient. The patient was discharged in a stable condition with medications. FINAL DIAGNOSES: 1. Chronic congestive heart failure both systolic and diastolic. 2. Gastroesophageal reflux disease. 3. Type 2 diabetes mellitus. 4. Hypercholesterolemia. [facility] MD Reymundo
== END 2017-09-25 16:50 | disposition home or self-care (01) ==
LOC: H.ER 11:43 → H.ERHOLD 15:57 → H.TEL 17:51 → INTOOBSV 09-23 11:51 → OBSVTOIN 09-23 11:51
PROVIDERS: ADMIT Internal Medicine; ATTEND Internal Medicine
DX: I11.0 Hypertensive heart disease with heart failure (principal); I42.8 Other cardiomyopathies; I25.10 Atherosclerotic heart disease of native coronary artery without angina pectoris; I50.42 Chronic combined systolic (congestive) and diastolic (congestive) heart failure; I10 Essential (primary) hypertension; E78.00 Pure hypercholesterolemia, unspecified; M54.5 Low back pain; Z79.82 Long term (current) use of aspirin; Z79.899 Other long term (current) drug therapy; K21.9 Gastro-esophageal reflux disease without esophagitis; N28.1 Cyst of kidney, acquired; K57.30 Diverticulosis of large intestine without perforation or abscess without bleeding; F10.10 Alcohol abuse, uncomplicated; E11.9 Type 2 diabetes mellitus without complications
CPT/HCPCS: 36415; 71045; 74177; 80053; 82948; 84484; 85025; 85610; 85730; 90471; 90732; 93005; 93306; 93452; 96365; 96375; 99285; C1769; C1887; C1893; C9113; G0328; G0378; J2250; J2270; J7030; Q9966; Q9967

== ENCOUNTER 2017-10-19 08:04 | Day surgery (SDC) | payer OTHER ==
[2017-10-19] MEDS ORDERED: Lactated Ringer's 500 ML IV ONE (08:13)
[2017-10-19] MEDS ORDERED: Propofol 10 mg/ml Inj (20 ML) ONE (08:57)
[2017-10-19 09:24] VITALS: TEMP 97
[2017-10-19 09:34] VITALS: BP 110/70; PULSE 80; RESP 16; O2SAT 99
== END 2017-10-19 10:30 | disposition home or self-care (01) ==
LOC: H.ENDO 08:04
PROVIDERS: ATTEND Internal Medicine Gastroenterology
DX: K29.50 Unspecified chronic gastritis without bleeding (principal); K30 Functional dyspepsia; K31.9 Disease of stomach and duodenum, unspecified
CPT/HCPCS: 43239; 82948; 88305; J2001; J2704; J7120